=== PATIENT | male | born 1960 | race Caucasian/White ===

== ENCOUNTER 2017-09-14 17:17 | Inpatient (IN) | payer SELFPAY ==
[2017-09-14] VITALS (9 sets, daily range): BP systolic 136–176; BP diastolic 74–97; PULSE 82–93; RESP 14–18; TEMP 98–98.2; O2SAT 97–99
[~2017-09-14] VITALS: Ht 167.6 cm; Wt 74.0 kg
--- NOTE | 2017-09-14 18:56 | PD ---
HPI Chief Complaint: Injury Time Seen by Provider: 18:36 Travel History International Travel<30 days: No Contact w/Intl Traveler<30days: No Traveled to known affect area: No History of Present Illness HPI This patient complains of pain in his left upper chest. Duration 7-10 days. Symptoms are nonexertional. They're intermittent and can last around 5 or so minutes. No alleviating factors. Symptoms are not exacerbated by left arm movement. He says that about 2 weeks ago his left shoulder got jerked in the socket when the tailgate fell without direct trauma to it. And then about 4-5 days later the chest pain started so he doesn't think it's related but is not sure. He has no diagnosed cardiac disease but he is hypertensive smoker with family history. He also snorts cocaine and last use was 3 days ago. Last IV drug use was 20 years ago [facility] Past Medical History Cardiovascular Problems: Yes (HTN) Social History Alcohol Use: No Tobacco Use: Yes Substance Use: No Allergies-Medications (Allergen,Severity, Reaction): Coded Allergies: No Known Allergies (Verified Allergy, Unknown, 09/14/17) Reported Meds & Prescriptions Reported Meds & Active Scripts Active No Active Prescriptions or Reported Medications Review of Systems General / Constitutional: No: Fever Eyes: No: Visual changes HENT: No: Headaches Cardiovascular: Positive: Chest Pain or Discomfort Respiratory: No: Shortness of Breath Gastrointestinal: No: Abdominal Pain Genitourinary: No: Dysuria Musculoskeletal: No: Pain Skin: No Rash Neurologic: No: Weakness Psychiatric: No: Depression Endocrine: No: Polydipsia Hematologic/Lymphatic: No: Easy Bruising Physical Exam Narrative GENERAL: Well-nourished, well-developed patient in no apparent distress. SKIN: Focused skin assessment reveals no rash and nodules. Skin is Warm and dry. HEAD: Atraumatic. Normocephalic. EYES: Pupils equal and round. No scleral icterus. No injection or drainage. ENT: No nasal bleeding or discharge. Mucous membranes pink and moist. NECK: Trachea midline. No JVD. CARDIOVASCULAR: Regular rate and rhythm. No murmur appreciated. RESPIRATORY: No accessory muscle use. Clear to auscultation. Breath sounds equal bilaterally. GASTROINTESTINAL: Abdomen soft, non-tender, nondistended. Hepatic and splenic margins not palpable. MUSCULOSKELETAL: No obvious deformities. No clubbing. No cyanosis. No edema. NEUROLOGICAL: Awake and alert. No obvious cranial nerve deficits. Motor grossly within normal limits. Normal speech. PSYCHIATRIC: Appropriate mood and affect; insight and judgment normal. Data Data Last Documented VS Vital Signs Date Time Temp Pulse Resp B/P (MAP) Pulse Ox O2 Delivery O2 Flow Rate FiO2 09/14/17 19:16 86 99 Room Air 09/14/17 19:14 18 176/94 (121) 09/14/17 17:47 98.0 Orders Orders Electrocardiogram (09/14/17 17:49) Electrocardiogram (09/14/17 18:48) Basic Metabolic Panel (Bmp) (09/14/17 18:48) Ckmb (Isoenzyme) Profile (09/14/17 18:48) Complete Blood Count With Diff (09/14/17 18:48) Prothrombin Time / Inr (Pt) (09/14/17 18:48) Act Partial Throm Time (Ptt) (09/14/17 18:48) Troponin I (09/14/17 18:48) Chest, Single Ap (09/14/17 18:48) Ecg Monitoring (09/14/17 18:48) Iv Access Insert/Monitor (09/14/17 18:48) Aspirin (Aspirin) (09/14/17 19:00) Sodium Chloride 0.9% Flush (Ns Flush) (09/14/17 19:00) CKMB (09/14/17 19:00) CKMB% (09/14/17 19:00) Electrocardiogram (09/14/17 ) Nitroglycerin 2% Oint (Nitroglycerin 2% (09/14/17 20:30) Heparin Infusion JONH.Q1H (09/14/17 20:22) Heparin Inj (Heparin Inj) (09/14/17 20:30) Heparin Inj (Heparin Inj) (09/15/17 02:30) Heparin Inj (Heparin Inj) (09/15/17 02:30) Heparin-D5w 25,000 U/250 Ml (Heparin-D5w (09/14/17 20:30) Act Partial Throm Time (Ptt) (09/14/17 20:22) Cbc No Diff, Includes Plts (09/14/17 20:22) Cbc No Diff, Includes Plts (09/17/17 06:00) Act Partial Throm Time (Ptt) (09/15/17 03:22) Occult Blood (Hemoccult) Stool (09/14/17 20:22) Admit Order (Ed Use Only) (09/14/17 20:23) Labs Laboratory Tests Test 09/14/17 19:00 White Blood Count 7.6 TH/MM3 Red Blood Count 4.93 MIL/MM3 Hemoglobin 14.9 GM/DL Hematocrit 43.4 % Mean Corpuscular Volume 88.2 FL Mean Corpuscular Hemoglobin 30.2 PG Mean Corpuscular Hemoglobin Concent 34.2 % Red Cell Distribution Width 12.5 % Platelet Count 287 TH/MM3 Mean Platelet Volume 7.7 FL Neutrophils (%) (Auto) 63.1 % Lymphocytes (%) (Auto) 24.8 % Monocytes (%) (Auto) 8.0 % Eosinophils (%) (Auto) 2.6 % Basophils (%) (Auto) 1.5 % Neutrophils # (Auto) 4.8 TH/MM3 Lymphocytes # (Auto) 1.9 TH/MM3 Monocytes # (Auto) 0.6 TH/MM3 Eosinophils # (Auto) 0.2 TH/MM3 Basophils # (Auto) 0.1 TH/MM3 CBC Comment DIFF FINAL Differential Comment Prothrombin Time 10.7 SEC Prothromb Time International Ratio 1.0 RATIO Activated Partial Thromboplast Time 28.4 SEC Blood Urea Nitrogen 15 MG/DL Creatinine 0.96 MG/DL Random Glucose 100 MG/DL Calcium Level 8.2 MG/DL Sodium Level 139 MEQ/L Potassium Level 3.8 MEQ/L Chloride Level 105 MEQ/L Carbon Dioxide Level 27.8 MEQ/L Anion Gap 6 MEQ/L Estimat Glomerular Filtration Rate 81 ML/MIN Total Creatine Kinase 136 U/L Creatine Kinase MB 7.0 NG/ML Troponin I 1.91 NG/ML [facility] [place] Medical Decision Making Medical Screen Exam Complete: Yes Emergency Medical Condition: Yes Medical Record Reviewed: Yes Differential Diagnosis Differential diagnosis includes NC, angina, pericarditis, pleurisy, GERD, anxiety. Narrative Course I have reviewed the patient's electronic medical record. IV placed I reviewed the EKG which shows sinus rhythm and no acute ST elevation or ectopy I reviewed the chest x-ray which is normal Extended cardiac monitoring shows sinus rhythm without ectopy CBC is normal Metabolic profile is normal CK is normal Troponin is elevated at 1.9 Coagulation studies are normal I gave him an aspirin I reviewed a second EKG which shows no ST elevation Patient has a non-ST segment elevation NC. I reviewed with miter grinder operator Dr. Padgett. He'll be admitted to cardiac intensive care at the [facility]. She's had aspirin already. Holding off on beta blockade due to his recent cocaine use. Placed him on Nitropaste and heparin drip. Call placed to hospitalist to discuss. At this time he is currently pain-free Critical Care Narrative Aggregate critical care time was 40 minutes. Time to perform other separately billable procedures was not included in the critical care time. My time did not include minutes spent treating any other patients simultaneously or on activities that did not directly contribute to the patient's treatment. The services I provided to this patient were to treat and/or prevent clinically significant deterioration that could result in: Myocardial damage, cardiopulmonary arrest, cardiac arrhythmia I provided critical care services requiring my management, as noted below: Chart data review, documentation time, medication orders and management, vital sign assessments/reviewing monitor data, ordering and reviewing lab tests, ordering and interpreting/reviewing x-rays and diagnostic studies, care of the patient and discussion of the patient with the admitting physicians. Diagnosis Primary Impression: Non-ST elevation NC (NSTEMI) Admitting Information Admitting Physician Requests: Admit Scripts No Active Prescriptions or Reported Meds Darion Padilla MD Sep 14, 2017 18:56
[2017-09-14] MEDS ORDERED: SODIUM CHLORIDE 0.9% FLUSH 10 ML FLUSH IVF PRN (19:00)
[2017-09-14] MEDS ORDERED: ASPIRIN 325 MG TAB PO ONE (19:00)
--- NOTE | 2017-09-14 19:18 | RADRPT ---
EXAM DATE/TIME: 09/14/2017 18:57 [facility] COMPARISON: No previous studies available for comparison. INDICATIONS : Chest pain. MEDICAL HISTORY : Hypertension. SURGICAL HISTORY : None. ENCOUNTER: Initial ACUITY: 1 day PAIN SCORE: 4/10 LOCATION: Left upper chest FINDINGS: A single view of the chest demonstrates the lungs to be symmetrically aerated without evidence of mas s, infiltrate or effusion. The cardiomediastinal contours are unremarkable. Osseous structures are intact. CONCLUSION: No acute disease. Anjel Thomas MD on September 14, 2017 at 19:16 Board Certified Radiologist. This report was verified electronically.
[2017-09-14 19:19] LABS: AUTOMATED NEUTROPHIL # 4.8 TH/MM3 (1.8-7.7); BASOPHIL # 0.1 TH/MM3 (0-0.2); BASOPHIL % 1.5 % (0.0-2.0); EOSINOPHIL # 0.2 TH/MM3 (0-0.4); EOSINOPHIL % 2.6 % (0.0-4.0); HEMATOCRIT 43.4 % (39.0-51.0); HEMO FLAGS DIFF FINAL; LYMPH % 24.8 % (9.0-44.0); LYMPHOCYTE # 1.9 TH/MM3 (1.0-4.8); MEAN CELL VOLUME 88.2 FL (80.0-100.0); MEAN CORPUSCULAR HEMOGLOBIN 30.2 PG (27.0-34.0); MEAN CORPUSCULAR HGB CONC 34.2 % (32.0-36.0); NEUT % 63.1 % (16.0-70.0); PLATELET COUNT 287 TH/MM3 (150-450); RED BLOOD COUNT 4.93 MIL/MM3 (4.50-5.90); RED CELL DISTRIBUTION WIDTH 12.5 % (11.6-17.2); WHITE BLOOD COUNT 7.6 TH/MM3 (4.0-11.0)
[2017-09-14 19:30] LABS: CHLORIDE 105 MEQ/L (98-107); POTASSIUM 3.8 MEQ/L (3.5-5.1); SODIUM (NA) 139 MEQ/L (136-145)
[2017-09-14 19:34] LABS: ANION GAP 6 MEQ/L (5-15); BICARBONATE 27.8 MEQ/L (21.0-32.0); BLOOD UREA NITROGEN 15 MG/DL (7-18)
[2017-09-14 19:37] LABS: GLOMERULAR FILTRATION RATE 81 ML/MIN (>89)
[2017-09-14 19:40] LABS: CREATINE KINASE 136 U/L (39-308)
[2017-09-14 19:43] LABS: APTT (PATIENT) 28.4 SEC (24.3-30.1); PROTHROMBIN TIME - PATIENT 10.7 SEC (9.8-11.6)
[2017-09-14] MEDS ORDERED: HEPARIN-D5W 25,000 U/250 ML 250 ML IV ONE (20:30)
[2017-09-14] MEDS ORDERED: SODIUM CHLORIDE 0.9% FLUSH 10 ML FLUSH IV FLUSH PRN (20:30)
[2017-09-14] MEDS ORDERED: HEPARIN SODIUM - IV 10,000 UNITS/10 ML VIAL IV ONE (20:30)
[2017-09-14] MEDS ORDERED: NITROGLYCERIN 2% OINT 1 GM PACKET TOPICAL ONE (20:30)
[2017-09-14] MEDS ORDERED: NALOXONE HCL 0.4 MG/ML AMP IV PUSH PRN (20:30)
[2017-09-14 20:52] LABS: HEMATOCRIT 45.2 % (39.0-51.0); MEAN CORPUSCULAR HEMOGLOBIN 30.1 PG (27.0-34.0); MEAN CORPUSCULAR HGB CONC 33.8 % (32.0-36.0); PLATELET COUNT 320 TH/MM3 (150-450); RED BLOOD COUNT 5.07 MIL/MM3 (4.50-5.90); REVIEW FLAG FINAL; WHITE BLOOD COUNT 8.2 TH/MM3 (4.0-11.0)
[2017-09-14] MEDS: SODIUM CHLORIDE 0.9% FLUSH 10 ML FLUSH IV FLUSH SCH (20:57)
[2017-09-14 21:07] LABS: APTT (PATIENT) 27.8 SEC (24.3-30.1)
[2017-09-15] VITALS (22 sets, daily range): BP systolic 102–146; BP diastolic 60–87; PULSE 66–88; RESP 14–18; TEMP 97.5–98.3; O2SAT 95–99
[2017-09-15] MEDS ORDERED: NITROGLYCERIN 0.4 MG SL 25 TABS/BTL SL PRN (02:15)
[2017-09-15] MEDS ORDERED: HEPARIN SODIUM - IV 10,000 UNITS/10 ML VIAL IV PRN ×2 (02:30)
[2017-09-15 03:24] LABS: APTT (PATIENT) 35.8 SEC (24.3-30.1)
[2017-09-15 06:54] LABS: AUTOMATED NEUTROPHIL # 5.9 TH/MM3 (1.8-7.7); BASOPHIL # 0.1 TH/MM3 (0-0.2); BASOPHIL % 0.6 % (0.0-2.0); EOSINOPHIL # 0.2 TH/MM3 (0-0.4); EOSINOPHIL % 2.4 % (0.0-4.0); HEMATOCRIT 43.6 % (39.0-51.0); HEMO FLAGS DIFF FINAL; LYMPH % 21.5 % (9.0-44.0); LYMPHOCYTE # 1.9 TH/MM3 (1.0-4.8); MEAN CELL VOLUME 87.8 FL (80.0-100.0); MEAN CORPUSCULAR HEMOGLOBIN 29.6 PG (27.0-34.0); MEAN CORPUSCULAR HGB CONC 33.8 % (32.0-36.0); MONO % 7.7 % (0.0-8.0); NEUT % 67.8 % (16.0-70.0); PLATELET COUNT 275 TH/MM3 (150-450); RED BLOOD COUNT 4.97 MIL/MM3 (4.50-5.90); RED CELL DISTRIBUTION WIDTH 12.5 % (11.6-17.2); WHITE BLOOD COUNT 8.8 TH/MM3 (4.0-11.0)
[2017-09-15 07:08] LABS: POTASSIUM 3.6 MEQ/L (3.5-5.1)
[2017-09-15 07:11] LABS: BICARBONATE 27.1 MEQ/L (21.0-32.0)
[2017-09-15] MEDS: SODIUM CHLORIDE 0.9% FLUSH 10 ML FLUSH IV FLUSH SCH ×2 (09:00→20:38)
[2017-09-15] MEDS ORDERED: ASPIRIN EC 325 MG TABEC PO SCH (09:00)
--- NOTE | 2017-09-15 09:47 | HHI.HP ---
HPI Service [facility] Primary Care Physician No Primary Care Physician Admission Diagnosis acute non ST elevation AK Diagnoses: Chief Complaint: Chest pain Travel History International Travel<30 Days: No Contact w/Intl Traveler <30 Da: No Traveled to Known Affected Are: No History of Present Illness 56 Y/O male with a medical history significant for hypertension presented to the emergency room with complaints of chest pain. Patient reports the pain has been ongoing for the past two weeks. It has been intermittent. It is associated with diaphoresis. Patient initially thought he injured his left arm at work. However the pain persisted and became severe today which prompted the emergency room visit. Workup in the emergency room revealed NSTEMI. Patient is currently chest pain free. Review of Systems Constitutional: COMPLAINS OF: Fatigue Cardiovascular: COMPLAINS OF: Chest pain Gastrointestinal: DENIES: Nausea, Vomiting Except as stated in HPI: all other systems reviewed are Neg Past Family Social History Past Medical History Hypertension but does not follow-up with jim Schafer medications. Past Surgical History Jaw reconstruction surgery Reported Medications Reported Meds & Active Scripts Active No Active Prescriptions or Reported Medications Allergies: Coded Allergies: No Known Allergies (Verified Allergy, Unknown, 09/14/17) Family History Sister of heart disease in her 50s. Social History Patient smoke 1 PPD No alcohol for the past 2 months No drugs for the past 20 years but used cocaine 3 days ago per his report. Physical Exam Vital Signs Vital Signs Date Time Temp Pulse Resp B/P (MAP) Pulse Ox O2 Delivery O2 Flow Rate FiO2 09/15/17 09:06 97.9 82 18 121/77 (92) 97 09/15/17 08:21 09/15/17 07:12 97.5 76 16 102/69 (80) 96 Room Air 09/15/17 06:59 Room Air 09/15/17 06:35 73 16 105/65 (78) 99 Room Air 09/15/17 03:45 69 16 96 Room Air 09/15/17 03:45 98.3 69 16 118/67 (84) 96 Room Air 09/15/17 02:15 74 16 128/70 (89) 95 Room Air 09/15/17 00:35 72 14 117/60 (79) 97 Room Air 09/15/17 00:05 76 14 123/68 (86) 97 Room Air 09/14/17 23:35 84 16 136/79 (98) 98 Room Air 09/14/17 23:35 84 16 98 Room Air 09/14/17 22:05 98.2 88 16 141/82 (101) 97 Room Air 09/14/17 21:35 92 14 154/94 (114) 97 Room Air 09/14/17 21:05 90 16 156/90 (112) 97 Room Air 09/14/17 20:35 90 16 162/97 (118) 98 Room Air 09/14/17 20:05 82 14 154/92 (112) 99 Room Air 09/14/17 20:05 82 16 99 Room Air 09/14/17 19:35 84 14 149/74 (99) 98 Room Air 09/14/17 19:16 86 99 Room Air 09/14/17 19:14 84 18 176/94 (121) 99 Room Air 09/14/17 17:47 98.0 93 16 159/80 (106) 97 Physical Exam GENERAL: This is a well-nourished, well-developed patient, in no apparent distress. SKIN: No rashes, ecchymoses or lesions. Cool and dry. HEAD: Atraumatic. Normocephalic. No temporal or scalp tenderness. EYES: Pupils equal round and reactive. Extraocular motions intact. No scleral icterus. No injection or drainage. ENT: Nose without bleeding, purulent drainage or septal hematoma. Throat without erythema, tonsillar hypertrophy or exudate. Uvula midline. Airway patent. NECK: Trachea midline. No JVD or lymphadenopathy. Supple, nontender, no meningeal signs. CARDIOVASCULAR: Regular rate and rhythm without murmurs, gallops, or rubs. RESPIRATORY: Clear to auscultation. Breath sounds equal bilaterally. No wheezes , rales, or rhonchi. GASTROINTESTINAL: Abdomen soft, non-tender, nondistended. No hepato-splenomegaly , or palpable masses. No guarding. MUSCULOSKELETAL: Extremities without clubbing, cyanosis, or edema. No joint tenderness, effusion, or edema noted. No calf tenderness. Negative Homans sign bilaterally. NEUROLOGICAL: Awake and alert. Cranial nerves II through XII intact. Motor and sensory grossly within normal limits. Five out of 5 muscle strength in all muscle groups. Normal speech. Laboratory Laboratory Tests Test 09/14/17 19:00 09/14/17 20:40 09/15/17 01:00 09/15/17 03:00 White Blood Count 7.6 8.2 Red Blood Count 4.93 5.07 Hemoglobin 14.9 15.3 Hematocrit 43.4 45.2 Mean Corpuscular Volume 88.2 89.0 Mean Corpuscular Hemoglobin 30.2 30.1 Mean Corpuscular Hemoglobin Concent 34.2 33.8 Red Cell Distribution Width 12.5 13.0 Platelet Count 287 320 Mean Platelet Volume 7.7 7.7 Neutrophils (%) (Auto) 63.1 Lymphocytes (%) (Auto) 24.8 Monocytes (%) (Auto) 8.0 Eosinophils (%) (Auto) 2.6 Basophils (%) (Auto) 1.5 Neutrophils # (Auto) 4.8 Lymphocytes # (Auto) 1.9 Monocytes # (Auto) 0.6 Eosinophils # (Auto) 0.2 Basophils # (Auto) 0.1 CBC Comment DIFF FINAL Differential Comment Prothrombin Time 10.7 Prothromb Time International Ratio 1.0 Activated Partial Thromboplast Time 28.4 27.8 35.8 Blood Urea Nitrogen 15 Creatinine 0.96 Random Glucose 100 Calcium Level 8.2 Sodium Level 139 Potassium Level 3.8 Chloride Level 105 Carbon Dioxide Level 27.8 Anion Gap 6 Estimat Glomerular Filtration Rate 81 Total Creatine Kinase 136 205 Creatine Kinase MB 7.0 Troponin I 1.91 4.92 Test 09/15/17 06:35 White Blood Count 8.8 Red Blood Count 4.97 Hemoglobin 14.7 Hematocrit 43.6 Mean Corpuscular Volume 87.8 Mean Corpuscular Hemoglobin 29.6 Mean Corpuscular Hemoglobin Concent 33.8 Red Cell Distribution Width 12.5 Platelet Count 275 Mean Platelet Volume 7.7 Neutrophils (%) (Auto) 67.8 Lymphocytes (%) (Auto) 21.5 Monocytes (%) (Auto) 7.7 Eosinophils (%) (Auto) 2.4 Basophils (%) (Auto) 0.6 Neutrophils # (Auto) 5.9 Lymphocytes # (Auto) 1.9 Monocytes # (Auto) 0.7 Eosinophils # (Auto) 0.2 Basophils # (Auto) 0.1 CBC Comment DIFF FINAL Differential Comment Blood Urea Nitrogen 13 Creatinine 0.74 Random Glucose 107 Calcium Level 8.2 Sodium Level 138 Potassium Level 3.6 Chloride Level 106 Carbon Dioxide Level 27.1 Anion Gap 5 Estimat Glomerular Filtration Rate 110 Total Creatine Kinase 217 Troponin I 8.38 Result Diagram: 09/15/17 0635 09/15/17 0635 Imaging Last Impressions Chest X-Ray 09/14/17 7928 Signed Impressions: Service Date/Time: Thursday, September 14, 2017 18:57 - CONCLUSION: No acute disease. MD Lisa Marshall VTE Risk Assessment Lisa VTE Risk Assessment: Mod/High Risk (score >= 2) Caprini Risk Assessment Model Point Value = 1 Point Value = 2 Point Value = 3 Point Value = 5 Age 41-60 Minor surgery BMI > 25 kg/m2 Swollen legs Varicose veins or History of unexplained or recurrent spontaneous Oral contraceptives or hormone replacement Sepsis (< 1 month) Serious lung disease, including pneumonia (< 1 month) Abnormal pulmonary function Acute myocardial infarction Congestive heart failure (< 1 month) History of inflammatory bowel disease Medical patient at bed rest Age 61-74 Arthroscopic surgery Major open surgery (> 45 min) Laparoscopic surgery (> 45 min) Malignancy Confined to bed (> 72 hours) Immobilizing plaster cast Central venous access Age >= 75 History of VTE Family history of VTE Factor V Leiden Prothrombin [id number] Lupus anticoagulant Anticardiolipin antibodies Elevated serum homocysteine Heparin-induced thrombocytopenia Other congenital or acquired thrombophilia Stroke (< 1 month) Elective arthroplasty Hip, pelvis, or leg fracture Acute spinal cord injury (< 1 month) Prophylaxis Regimen Total Risk Factor Score Risk Level Prophylaxis Regimen 0-1 Low Early ambulation 2 Moderate Order ONE of the following: *Sequential Compression Device (SCD) *Heparin 5000 units SQ BID 3-4 Higher Order ONE of the following medications: *Heparin 5000 units SQ TID *Enoxaparin/Lovenox 40 mg SQ daily (WT < 150 kg, CrCl > 30 mL/min) *Enoxaparin/Lovenox 30 mg SQ daily (WT < 150 kg, CrCl > 10-29 mL/min) *Enoxaparin/Lovenox 30 mg SQ BID (WT < 150 kg, CrCl > 30 mL/min) AND/OR *Sequential Compression Device (SCD) 5 or more Highest Order ONE of the following medications: *Heparin 5000 units SQ TID (Preferred with Epidurals) *Enoxaparin/Lovenox 40 mg SQ daily (WT < 150 kg, CrCl > 30 mL/min) *Enoxaparin/Lovenox 30 mg SQ daily (WT < 150 kg, CrCl > 10-29 mL/min) *Enoxaparin/Lovenox 30 mg SQ BID (WT < 150 kg, CrCl > 30 mL/min) AND *Sequential Compression Device (SCD) Assessment and Plan Problem List: (1) Non-ST elevation AK (NSTEMI) ICD Code: I21.4 - Non-ST elevation (NSTEMI) myocardial infarction Status: Acute Plan: Patient received Aspirin and started on Heparin drip per protocol. Nitro paste Cardiology consulted Morphine as needed for pain (2) Cocaine abuse ICD Code: F14.10 - Cocaine abuse, uncomplicated Plan: Patient admitted to using once 3 days ago, Prior to that he reports no illicit drug use in the past 20 years. Patient was counseled. (3) Tobacco abuse ICD Code: Z72.0 - Tobacco use Plan: Patient counseled to quit. (4) Hypertension ICD Code: I10 - Essential (primary) hypertension Status: Chronic Plan: BP currently stable. Monitor Physician Certification 2 Midnight Certification Type: Admission for Inpatient Services Order for Inpatient Services The services are ordered in accordance with Medicare regulations or non- Medicare payer requirements, as applicable. In the case of services not specified as inpatient-only, they are appropriately provided as inpatient services in accordance with the 2-midnight benchmark. Estimated LOS (days): 3 days is the estimated time the patient will need to remain in the hospital, assuming treatment plan goals are met and no additional complications. Post-Hospital Plan: Home Problem Qualifiers (1) Hypertension: Qualified Codes: I10 - Essential (primary) hypertension Chaz Krishnan MD Sep 15, 2017 09:46
[2017-09-15] MEDS ORDERED: HEPARIN-NS/PF INJ 1,000 ML ONE (10:08)
[2017-09-15] MEDS ORDERED: MIDAZOLAM HCL 2 MG/2 ML VIAL ONE (10:35)
[2017-09-15] MEDS ORDERED: HEPARIN SODIUM - IV 10,000 UNITS/10 ML VIAL ONE (11:00)
[2017-09-15] MEDS ORDERED: PRASUGREL 10 MG TAB ONE (11:02)
[2017-09-15] MEDS ORDERED: TIROFIBAN INFUSION INJ 250 ML IV ONE (11:02)
[2017-09-15] MEDS ORDERED: SODIUM NITROPRUSSIDE 50 MG/2 ML VIAL ONE (11:15)
[2017-09-15] MEDS ORDERED: MISC INFORMATION XX ONE (11:45)
[2017-09-15] MEDS ORDERED: PRASUGREL 10 MG TAB PO ONE (11:45)
[2017-09-15] MEDS ORDERED: SODIUM CHLORIDE 0.9% FLUSH 10 ML FLUSH IV FLUSH PRN (11:45)
--- NOTE | 2017-09-15 11:54 | CATHPROC ---
[facility] HIS Report Study Information Study Number Admission Scheduled Start Study Start [id number] Sep 14 2017 8:25PM 09/15/2017 Sep 15 2017 10:11AM [facility] Cardiac Catheterization Admit Source Facility Department Other [facility] - Stock Blender Physician and Clinical Staff Initial Hubert Mandel Soil Chemist Shannan Rodriguez,CORINRN Soil Chemist Benny Mcdaniel,JUAN Recorder Azucena Julio,EXPERIENCE PLANNING STRATEGIST Scrub Savage, Gisselle,RESIDENT CARE DIRECTOR TECH2 Procedures Performed Procedure Location (Site) Vessel Name Coronary Angiograms LCA Left Coronary Coronary Angiograms RCA Right Coronary L Heart Cath LV Gram-hand inj. LV LV Ventricle PTCA CIRC Mid CIRC Stent OM1 Prox CIRC Wire insertion Fem Art (right) Femoral Art Equipment Time Tire Regrooving Machine Operator Description Size Mfg Part Number Used/Scraped [id number] 10:57 [employer] WIRE, ASAHI PROWATER 180CM 180CM Used *[id number] 10:58 [employer]ILL[employer] WIRE, ASAHI PROWATER 180CM 180CM Used *[id number] TRANSDUCER, TRUWAVE [id number] 10:17 DREW SHERIDAN * Used W/STOCKCOCK *[id number] [id number] *[id number] [id number] *[id number] *[id number] WIRE, HYDROSTEER 150CM [id number] 10:51 DAIG/ST. JEANNIE MEDICAL 150CM Used ANGLED GLIDE *[id number] 10:17 [employer] INDUSTRIES PACK, CCL CUSTOM * Used *[id number] 10:17 [employer]ics PACER PEN, SKIN DUAL W/ RULER * Used *[id number] 11:07 MEDTRONIC BALLOON, 2.5 X 12MM EUPHORA 12MM Used *[id number] 11:07 MEDTRONIC STENT, 3.0 9 INTEGRITY 3.0 9 Used *[id number] 11:09 EXPO MEDICAL 30 GABBY INDEFLATOR Used *[id number] 10:58 EXPO MEDICAL SHEATH, FR6.5 PRELUDE 11CM FR 6.5 038ACT Used *[id number] 10:17 EXPO MEDICAL WIRE, 3MMJ .035 180CM 180CM Used *[id number] 10:17 [facility] MANIFOLD, 4 PORT * Used *[id number] 10:17 NYCOMED OMNIPAQUE, 350 MG, 150ML 150ML [id number] Used [id number] 10:17 GUILLEN MEDICAL BLANKET,WARM AIR CCL * Used *[id number] 10:17 TERUMO MEDICAL SHEATH, FR4 TERUMO (10CM) FR 4 Used *[id number] Equipment Model, Serial, Lot Number and Expiration Data Description Model Number Serial Number Lot Number Expiration Date STENT, 3.0 9 INTEGRITY [id number] 03-03-2019 History: Allergies Allergy Reaction No Known Allergies History: Risk Factors Family History of Hypertension Dyslipidemia Previous CO Previous Heart Failure Premature CAD Yes No No No No Prior Valve Prior PCI Prior CABG Surgery No No No Cerebrovascular Peripheral Artery Chronic Lung On Dialysis Diabetes Disease Disease Disease No No No No No History: Stress Tests Stress or Imaging Studies Performed No History: Other Current Smoker Method Packs a Day Years Used Pack Years Yes Cigarettes 1 30 30 Labs Hgb (g/dl) Hct (%) WBC (l/cumm) Platelets (thousands) 11.60-17.00 35.00-51.00 4.00-11.00 150.00-450.00 14.7 43.6 8.8 275 Glucose (mg/dl) BUN (mg/dl) Creatinine (mg/dl) BUN:Creatinine (1:x) 74.00-106.00 7.00-18.00 0.50-1.30 10.00-20.00 107 13 0.7 18.6 Na (meq/l) K (meq/l) 136.00-145.00 3.50-5.10 138 3.6 INR (PTT:PT) 0.90-1.10 1 Troponin I (ng/ml) CPK (u/l) CPK-MB (ng/ML) 0.02-0.05 26.00-308.00 0.50-3.60 8.32 217 Not Drawn Medication Medication Total Dose (Bolus/Oral) Medication Total Dosage/Unit 1% XYLOCAINE 20 mL AGGRASTAT BOLUS 37.5 mL EFFIENT 60 mg HEPARIN 4000 units Medications (Bolus/Oral) Medication Time Given Dosage/Unit Administered By Reason 09/15/2017 10:47:40 1% XYLOCAINE 20 mL Hubert Grimaldo AM Patient arrived on 20 mL 1% XYLOCAINE given by Hubert Grimaldo via Subcutaneous. 09/15/2017 11:01:36 HEPARIN 4000 units Benny Mcdaniel AM 4000 units HEPARIN given in lab by Benny Mcdaniel RN via Peripheral IV. 09/15/2017 11:18:14 EFFIENT 60 mg Benny Mcdaniel AM 60 mg EFFIENT given in lab by Benny Mcdaniel RN via Oral. 09/15/2017 11:19:48 AGGRASTAT BOLUS 37.5 mL Benny Mcdaniel AM 37.5 mL AGGRASTAT BOLUS given in lab by Benny Mcdaniel RN via Peripheral IV. Medication (Drip) Medication Time Given Dosage/Unit Concentration/Unit Diluent (ml) Solution 09/15/2017 11:23:40 AGGRASTAT DRIP 0.153 mcg/kg/min 12.5 mg 250 NaCl .9 AM 0.153 mcg/kg/min AGGRASTAT DRIP given in lab by Benny Mcdaniel RN via Peripheral IV. Pump/Drip Flow = 13.5 ml/hr using NaCl .9 with a concentration of 12.5 mg in 250 ml. 09/15/2017 10:22:43 IV Solutions 50 mL (IV) 500 NaCl .9 AM Patient arrived on IV Solutions via Peripheral IV. Pump/Drip Flow using NaCl .9. Initial Case Assessment Cardiovascular HR NIBP Chest Pain 77 152/92 0 Edema Present Skin color Skin None Normal Warm Dry Circulatory - Right Pulses Dorsalis Pedis Femoral 2 3 Scale (0,1,2,3,4,d) Circulatory - Left Pulses Dorsalis Pedis Femoral 2 3 Scale (0,1,2,3,4,d) Neurological State Oriented to time-place- Alert Moves all extremities person Respiration - General Respiration Rate SpO2 (%) (B/min) 20 98 Chronological Log Time Study Chronological Log 10:17:24 Patient arrived via Bed. 10:17:25 Patient Name, D.O.B, / Armband Verified By R.N. 10:17:28 Consent signed by the physician and the patient and verified by the Stock Blender staff. 10:21:08 Verbal Stimulation=2 Physical Stimulation=2 Airway=2 Respiration=2 TOTAL=8. (0=absent, 1=li mited, 2=present) 10:21:32 Patient has been NPO for More than 6Hrs. 10:21:34 Skin Breakdown- None 10:21:46 A # 20 IV was noted in the Forearm (left). Grade = 0 10:22:43 Patient arrived on IV Solutions via Peripheral IV. Pump/Drip Flow using NaCl .9. 10:23:12 History and physical on the chart or being dictated. Assessment: Initial Case, HR=77 BPM, RKAC=521/92 mmhg, Chest Pain=0, Edema=None, Color=Normal, Skin = Warm, Dry Right Pulses: Shon Ped=2, Femoral=3 10:23:20 Left Pulses: Shon Ped=2, Femoral=3 Neurological: State=Alert, Ox3, ARRIAZA Respiration: Resp=20 B/min, SpO2=98 % Vitals capture started with the following parameters, Patient=Adult, Interval=5 min, Initial Pr jtdgpo=487 mmHg, 10:30:12 Deflation Rate=5 mmHg 10:30:26 Vitals capture stopped. Vitals capture started with the following parameters, Patient=Adult, Interval=5 min, Initial Pr ucjwgt=991 mmHg, 10:33:48 Deflation Rate=5 mmHg 10:33:54 Reference ECG taken 10:34:25 HR=72 bpm, GPVZ=315/92 mmhg, SpO2=98.0 %, Resp=12 B/min, Pain=0, Yesy=10, Novak=2 10:35:18 Pressure channel 1 zeroed. 10:36:19 Bilateral groins prepped with 2% chlorhexidine, and draped after a 3 minute waiting time. 10:36:25 HR=75 bpm, PRUI=606/87 mmhg, SpO2=97.0 %, Resp=14 B/min, Pain=0, Yesy=10, Novak=2 10:38:24 HR=80 bpm, TLGF=542/92 mmhg, SpO2=96.0 %, Resp=11 B/min, Pain=0, Yesy=10, Novak=2 10:40:23 HR=75 bpm, COJF=434/91 mmhg, SpO2=97.0 %, Resp=8 B/min, Pain=0, Yesy=10, Novak=2 10:42:26 HR=73 bpm, RZRP=849/86 mmhg, SpO2=97.0 %, Resp=9 B/min, Pain=0, Yesy=10, Novak=2 10:44:21 HR=74 bpm, CFLB=443/90 mmhg, SpO2=96.0 %, Resp=9 B/min, Pain=0, Yesy=10, Novak=2 10:45:45 MD arrived. 10:46:26 HR=72 bpm, SSMP=920/90 mmhg, SpO2=97.0 %, Resp=10 B/min, Pain=0, Yesy=10, Novak=2 Time Out. Correct patient, correct procedure, correct physician, power injector not loaded with contrast with surgical 10:47:15 team present. Time Out Concurred by MD and individual staff in procedure. 10:47:34 Case Start 10:47:40 Patient arrived on 20 mL 1% XYLOCAINE given by Hubert Grimaldo via Subcutaneous. 10:47:47 Access site was Right Femoral Artery. 10:48:26 HR=69 bpm, PDNJ=934/88 mmhg, SpO2=97.0 %, Resp=11 B/min, Pain=0, Yesy=10, Novak=2 10:49:47 A SHEATH, FR4 TERUMO (10CM) FR 4 was advanced into the Fem Art (right) using the ~TECHNIQUE ~ technique. A JR 4.0 INFINITI CATHETER FR 4 was advanced over a wire. OMNIPAQUE, 350 MG, 150ML 150ML was us ed for 10:49:58 injections. 10:50:48 A WIRE, 3MMJ .035 180CM 180CM was inserted via Fem Art (right). 10:50:54 HR=77 bpm, CISA=133/96 mmhg, SpO2=97.0 %, Resp=15 B/min, Pain=0, Yesy=10, Novak=2 10:51:16 Wire removed 10:52:19 A WIRE, HYDROSTEER 150CM ANGLED GLIDE 150CM was inserted via Fem Art (right). 10:52:28 HR=77 bpm, BIND=155/89 mmhg, SpO2=96.0 %, Resp=15 B/min, Pain=0, Yesy=10, Novak=2 10:52:57 Wire removed Recorded Pressure: LV, HR=79, Condition=Condition 1 10:53:37 (Left Ventricle) LV 145/-5/136 Recorded Pressure: LV, HR=79, Condition=Condition 1 10:53:46 (Left Ventricle) LV 144/1/140 10:54:00 The LV was manually injected with 7 cc's and visualized. OMNIPAQUE, 350 MG, 150ML 150ML use d. Recorded Pressure: LV, Ao, HR=77, Condition=Condition 1 10:54:07 (Left Ventricle) LV 147/3/143, (Aorta) Ao 148/74/105 10:54:29 HR=76 bpm, QKNO=202/90 mmhg, SpO2=97.0 %, Resp=19 B/min, Pain=0, Yesy=10, Novak=2 10:55:02 The RCA was injected and visualized at various angles. OMNIPAQUE, 350 MG, 150ML 150ML used . After removing the current catheter a JL 4.0 INFINITI CATHETER FR 4 was advanced over a WIRE, 3 MMJ .035 180CM 10:55:14 180CM. 10:56:28 HR=75 bpm, RJWM=363/90 mmhg, SpO2=97.0 %, Resp=14 B/min, Pain=0, Yesy=10, Novak=2 10:57:26 The LCA was injected and visualized at various angles. OMNIPAQUE, 350 MG, 150ML 150ML used . 10:58:31 HR=74 bpm, BMBF=977/91 mmhg, SpO2=97.0 %, Resp=15 B/min, Pain=0, Yesy=10, Novak=2 11:00:05 Catheter was removed A SHEATH, FR6.5 PRELUDE 11CM FR 6.5 was exchanged in the Fem Art (right). This was necessary in order to 11:00:19 accomodate a larger catheter. 11:00:25 HR=76 bpm, SHIO=557/89 mmhg, SpO2=98.0 %, Resp=14 B/min, Pain=0, Yesy=10, Novak=2 A XB 4.0 GUIDE CATHETER FR 6 was advanced over a wire. OMNIPAQUE, 350 MG, 150ML 150ML was used for 11:00:30 injections. 11:01:36 4000 units HEPARIN given in lab by Benny Mcdaniel, JUAN via Peripheral IV. 11:02:26 A WIRE, ASAHI PROWATER 180CM 180CM was inserted via Fem Art (right). 11:02:28 HR=73 bpm, GALT=184/81 mmhg, SpO2=97.0 %, Resp=11 B/min, Pain=0, Yesy=10, Novak=2 11:03:21 Interventional wire has crossed the lesion 11:03:30 A WIRE, ASAHI PROWATER 180CM 180CM was inserted via Fem Art (right). 11:03:40 Interventional wire has crossed the lesion 11:04:27 HR=77 bpm, RTLV=324/89 mmhg, SpO2=98.0 %, Resp=12 B/min, Pain=0, Yesy=10, Novak=2 11:04:30 A BALLOON, 2.5 X 12MM EUPHORA 12MM was inserted over WIRE, ASAHI PROWATER 180CM 180CM via t he CIRC Mid. 11:06:30 HR=77 bpm, DANF=753/83 mmhg, SpO2=98.0 %, Resp=15 B/min, Pain=0, Yesy=10, Novak=2 A BALLOON, 2.5 X 12MM EUPHORA 12MM over a WIRE, ASAHI PROWATER 180CM 180CM in the CIRC Mid was inflated 11:08:20 using a 30 GABBY INDEFLATOR at 8 gabby for 10 sec. 11:08:29 HR=78 bpm, QOEQ=224/99 mmhg, SpO2=97.0 %, Resp=12 B/min, Pain=0, Yesy=10, Novak=2 A BALLOON, 2.5 X 12MM EUPHORA 12MM over a WIRE, ASAHI PROWATER 180CM 180CM in the CIRC Mid was inflated 11:08:50 using a 30 GABBY INDEFLATOR at 10 gabby for 10 sec. 11:09:51 Balloon Removed. 11:10:30 HR=76 bpm, OGBW=384/103 mmhg, SpO2=97.0 %, Resp=17 B/min, Pain=0, Yesy=10, Novak=2 An STENT, 3.0 9 INTEGRITY 3.0 9 Bare Metal Stent was inserted through a XB 4.0 GUIDE CATHETER F R 6 over a 11:11:58 WIRE, ASAHI PROWATER 180CM 180CM. A STENT, 3.0 9 INTEGRITY 3.0 9 was deployed using a 30 GABBY INDEFLATOR at 10 atmospheres for 10 seconds in the 11:12:11 OM1 Prox. 11:12:30 HR=75 bpm, BVUV=230/100 mmhg, SpO2=98.0 %, Resp=12 B/min, Pain=0, Yesy=10, Novak=2 11:13:38 Delivery device removed 11:14:31 HR=80 bpm, FQKW=978/108 mmhg, SpO2=98.0 %, Resp=6 B/min, Pain=0, Yesy=10, Novak=2 11:14:40 Activated Clotting Time Drawn 11:14:48 Wire removed 11:16:34 HR=78 bpm, MWFC=356/104 mmhg, SpO2=98.0 %, Resp=7 B/min, Pain=0, Yesy=10, Novak=2 11:16:57 Wire removed 11:17:37 Catheter was removed 11:18:14 60 mg EFFIENT given in lab by Benny Mcdaniel, JUAN via Oral. 11:18:35 HR=81 bpm, ETJJ=063/105 mmhg, SpO2=97.0 %, Resp=18 B/min, Pain=0, Yesy=10, Novak=2 11:19:48 37.5 mL AGGRASTAT BOLUS given in lab by Benny Mcdaniel, JUAN via Peripheral IV. 11:20:13 ACT (Normal Range 90-180) = 239 11:20:30 Case End 11:20:38 HR=92 bpm, KSLJ=227/86 mmhg, SpO2=99.0 %, Resp=16 B/min, Pain=0, Yesy=10, Novak=2 11:22:26 HR=77 bpm, BHKF=169/102 mmhg, SpO2=96.0 %, Resp=12 B/min, Pain=0, Yesy=10, Novak=2 0.153 mcg/kg/min AGGRASTAT DRIP given in lab by Benny Mcdanile, JUAN via Peripheral IV. Pump/Dri p Flow = 13.5 ml/hr 11:23:40 using NaCl .9 with a concentration of 12.5 mg in 250 ml. 11:24:29 HR=72 bpm, IFRZ=462/95 mmhg, SpO2=98.0 %, Resp=13 B/min, Pain=0, Yesy=10, Novak=2 11:24:57 Vitals capture stopped. 11:25:17 In the Fem Art (right) the SHEATH, FR6.5 PRELUDE 11CM FR 6.[address] by Gisselle Wan, RESIDENT CARE DIRECTOR TECH2. 11:27:12 Sterile dressing applied to site 11:27:15 No case complications noted. 11:27:18 Cine recording checked. 11:27:24 Implantable Device card placed in patient's chart. 11:27:31 A Left Heart Cath was performed. 11:29:55 Patient moved to [facility] End Study - Contrast Media Used In Study Contrast Total Opened (mL) Total Used (mL) Total Wasted (mL) Omnipaque 150 120 30 End Study - Maximum Contrast Load Max Contrast Load (mL) 524.4 End Study - Radiation Exposure Fluoro Time (minutes) 8.5 End Study - Patient Disposition Complications Transferred To Interventional Outcome No Critical Care Bed successful
[2017-09-15] MEDS: TIROFIBAN INFUSION INJ 250 ML IV SCH (12:00)
--- NOTE | 2017-09-15 12:04 | MB ---
cc: ROMERO BROOKS M.D. DATE OF CONSULTATION 09/15/2017 HISTORY OF PRESENT ILLNESS Bill is a very pleasant 56-year-old gentleman who has no significant past medical history. He has been having intermittent chest pain for the last 3-4 weeks which started after he was unloading a trailer. 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 The chest pain has been intermittent. He presented to the ER yesterday at 18:56. The pain occurs at rest; it is in the left upper chest, lasts approximately 5 minutes at a time. He otherwise denies any fever, chills, cough, GI or bleeding, PND, orthopnea, syncope or dizziness. PAST MEDICAL HISTORY 1. Includes cocaine use, last used 3 days ago. IV drug abuse 20 years ago. 2. History of hypertension. SOCIAL HISTORY He uses cocaine. He smokes. Denies alcohol use. ALLERGIES None. MEDICATIONS IN THE ER 1. Aspirin 325 p.o. 2. Heparin bolus and drip. PHYSICAL EXAMINATION VITAL SIGNS: Blood pressure 121/77, pulse 82, respiratory rate 18, temperature 97.9. GENERAL: He is alert and oriented x3, in no distress. NECK: Supple. No JVD, no bruit. CARDIOVASCULAR: S1, S2. No murmurs, rubs, or gallops. LUNGS: Clear to auscultation bilaterally. ABDOMEN: Soft, non-tender, non-distended with positive bowel sounds. EXTREMITIES: No clubbing, cyanosis or edema. LABORATORY DATA White count 8.8, hemoglobin 14.7, hematocrit 43.6, platelet count 275. Troponin at 19:00 on 09/14 was 1.91, at 1 a.m. on 09/15 was 4.92; at 6:35 a.m. it was 8.38. Sodium 138, potassium 3.6, chloride 106, bicarb 27.1, BUN 13, creatinine 0.74. INR is 4.0. CHEST X-RAY No acute disease. EKG Normal sinus rhythm at 85 beats per minute and is within normal limits. FINAL DIAGNOSIS 1. Non-STEMI. 2. Cocaine abuse. 3. Tobacco abuse. 4. Hypertension. 5. Acute coronary syndrome. 6. [place] [employer] Society Class IV angina. DISCUSSION 1. Consult was called in to me at 07:30 this morning. I called the greens laborer to set up an urgent catheterization due to the patient's elevated troponin and increasing troponin, multiple cardiac risk factors. 2. I strongly recommended the patient stop smoking. 3. Continue aspirin. 4. Further recommendations based on results of his coronary anatomy. MD RADHA Willett/RUPALI /11:36 AM /11:48 AM
--- NOTE | 2017-09-15 15:22 | EKG ---
Date Performed: 09/15/2017 Time Performed: 00:52:13 PTAGE: 56 years EKG: Sinus rhythm BORDERLINE RIGHT AXIS DEVIATION NONSPECIFIC ST & T-WAVE ABNORMALITY BORDERLINE ECG Compared to prior tracing no significant change PREVIOUS TRACING : 09/14/2017 20.14 DOCTOR: Hubert Grimaldo Interpretating Date/Time 09/17/2017 08:18:30
--- NOTE | 2017-09-15 15:22 | EKG ---
Date Performed: 09/14/2017 Time Performed: 20:14:06 PTAGE: 56 years EKG: Sinus rhythm NONSPECIFIC ST & T-WAVE ABNORMALITY BORDERLINE ECG Compared to prior tracing no significant change PREVIOUS TRACING : 09/14/2017 17.52.42 DOCTOR: Hubert Grimaldo Interpretating Date/Time 09/15/2017 15:22:11
--- NOTE | 2017-09-15 15:22 | EKG ---
Date Performed: 09/14/2017 Time Performed: 17:52:42 PTAGE: 56 years EKG: Sinus rhythm NONSPECIFIC ST & T-WAVE ABNORMALITY BORDERLINE ECG INTERPRETATION BASED ON A DEFAULT AGE OF 41 YEARS NO PREVIOUS TRACING DOCTOR: Hubert Grimaldo Interpretating Date/Time 09/15/2017 15:21:24
--- NOTE | 2017-09-15 15:23 | EKG ---
Date Performed: 09/15/2017 Time Performed: 06:59:29 PTAGE: 56 years EKG: Sinus rhythm BORDERLINE RIGHT AXIS DEVIATION NONSPECIFIC T-WAVE ABNORMALITY BORDERLINE ECG Compared to prior trac ing no significant change PREVIOUS TRACING : 09/15/2017 00.52 DOCTOR: Hubert Grimaldo Interpretating Date/Time 09/15/2017 15:22:30
[2017-09-15] MEDS ORDERED: IOHEXOL 350 MG/ML 50 ML BTL (for Cath Lab) OTHER ONE (15:42)
[2017-09-15] MEDS ORDERED: IOHEXOL 350 MG/ML 100 ML BTL (for Cath Lab) OTHER ONE (15:42)
[2017-09-15] MEDS: CARVEDILOL 3.125 MG TAB PO SCH (20:37)
[2017-09-15] MEDS ORDERED: ATORVASTATIN 10 MG TAB PO SCH (21:00)
--- NOTE | 2017-09-15 23:02 | MA ---
cc: ROMERO BROOKS M.D. DATE: 09/15/2017 PROCEDURE: Left heart catheterization, left angiography, coronary angiography, PTCA of the first obtuse marginal vessel, PCI bare metal stent of the mid left circumflex vessel. INDICATIONS: Non STEMI, [place] [employer], class IV angina, coronary artery disease. Tobacco use. DESCRIPTION OF PROCEDURE: The patient was brought to the Cardiac Catheterization Laboratory, prepped and draped in the usual sterile fashion. 10 cc of 1% lidocaine was used to locally anesthetize the right common femoral artery. A 4-Comoran sheath was placed in the right common femoral artery. 4-Comoran JR-4, JL-4 catheters were used to perform left and right coronary angiography. Note: I needed to use a 4 [place] JR4 diagnostic catheter and a 0.035 glide wire to traverse the right common iliac artery. Blood pressure was 120/60 suggesting a tortuous vessel, however, fluoroscopic imaging did suggest significant stenosis in the right common iliac artery. Thereafter, all catheter exchanges were done over 0.035 J-tip guide wire. 4 [place] JR4 and JL4 catheters were used to perform left and right coronary angiography, left ventriculopathy. FINDINGS: LV pressure is 145/6/8, ejection fraction 50%. The right coronary artery is dominant and has an ostial 50% stenosis, has a long 60% to 70% stenosis in the proximal segment. This may be partially due to deep fitting of the 4 [place] JR4 and spasming, because I only saw this in the cranial view. On the initial JAPANESE view there appeared to be only 20 to 30% stenosis. The right PDA and LENY are large vessels with no significant obstructive disease. Left main coronary artery has a distal 30% stenosis. Left circumflex vessel is a long ostial 50% stenosis and has approximately 45 degree angulation off the LAD. There is a 95% focal hazy stenosis in the mid AV groove left circ. The first obtuse marginal vessel at this lesion site has an ostial 95% stenosis. This is a small to medium size vessel. The left circumflex vessel distal to the lesion goes on to feed a small to medium size marginal vessel and two small distal posterolateral arteries. The LAD has a 50 to 60% stenosis in the proximal segment which is a long lesion spanning medium size diagonal artery. The medium size diagonal artery has an ostial 75% stenosis and the diagonal has an approximately 45 degree angulation off the LAD. There is a distal 50% stenosis in the LAD. The 4 Comoran sheath exchanged for the 6 Comoran sheath, 16 units per kilo of heparin was given. ACT was 239. A 6 Comoran XB 4.0 Prowater guide wire was placed into the distal obtuse marginal vessel. A second 0.014 Prowater guidewire was placed into the first obtuse marginal vessel at the lesion site bifurcation area as detailed above. A 2-5 10 compliant Euphora balloon was used to predilate the first obtuse marginal obtuse marginal vessel, two inflations of 8-10 atmospheres for 20 seconds. Stenosis went from 95% to 0% with NICK-III flow. I then directly stented the AV groove left circumflex vessel with a 3-0 9 Integrity stent, one inflation to 10 atmospheres for 20 seconds. NOTE: Crossing the lesion did reproduce the patient's symptoms and then it got worse with balloon inflation. There was temporarily NICK II to III flow into the distal left circ and OM which was completely resolved after 200 mcg of intracoronary Nipride. The patient's chest pain was completely relieved at the end of the procedure. CONCLUSION Non STEMI, acute coronary syndrome, [place] Cardi[employer] Society class IV angina, culprit 95% hazy stenosis in the mid AV groove, left circumflex vessel with a bifurcation with villa size first obtuse marginal vessel as detailed above. Otherwise mild left main and moderate to severe three-vessel coronary artery disease in the right dominant system as detailed above. Successful PTCA of the ostial first obtuse marginal vessel from 95% to 0% with NICK-III flow. Successful PCI with bare metal stent of the mid AV groove left circumflex vessel from 95% to 0% with NICK-III flow. Recommend aspirin 162 milligrams daily indefinitely. Effient 60% p.o. load and then 10 milligrams daily for 12 to 15 months. Aggrastat drip per protocol. I have strongly recommended to the patient to stop smoking. Will check fasting lipids, NCP guidelines. MD RADHA Willett/ETHAN /11:29 AM /10:08 PM
[2017-09-16] VITALS (11 sets, daily range): BP systolic 135–138; BP diastolic 63–78; PULSE 68–92; RESP 14–16; TEMP 97.9–98; O2SAT 97
[2017-09-16] MEDS: TIROFIBAN INFUSION INJ 250 ML IV SCH (02:14)
[2017-09-16 07:20] LABS: POTASSIUM 3.8 MEQ/L (3.5-5.1)
[2017-09-16 07:22] LABS: AUTOMATED NEUTROPHIL # 3.8 TH/MM3 (1.8-7.7); BASOPHIL % 0.7 % (0.0-2.0); EOSINOPHIL # 0.1 TH/MM3 (0-0.4); EOSINOPHIL % 2.3 % (0.0-4.0); HEMO FLAGS DIFF FINAL; LYMPHOCYTE # 1.6 TH/MM3 (1.0-4.8); MEAN CELL VOLUME 89.6 FL (80.0-100.0); MEAN CORPUSCULAR HEMOGLOBIN 31.6 PG (27.0-34.0); MEAN CORPUSCULAR HGB CONC 35.2 % (32.0-36.0); MONO % 9.6 % (0.0-8.0); NEUT % 61.4 % (16.0-70.0); PLATELET COUNT 265 TH/MM3 (150-450); RED BLOOD COUNT 4.79 MIL/MM3 (4.50-5.90); RED CELL DISTRIBUTION WIDTH 13.5 % (11.6-17.2); WHITE BLOOD COUNT 6.2 TH/MM3 (4.0-11.0)
[2017-09-16 07:27] LABS: HDL CHOLESTEROL 41.9 MG/DL (40.0-60.0); INDIRECT BILIRUBIN 0.6 MG/DL (0.0-0.8); TOTAL BILIRUBIN ADULT 0.7 MG/DL (0.2-1.0)
[2017-09-16] MEDS: CARVEDILOL 3.125 MG TAB PO SCH (08:34)
--- NOTE | 2017-09-16 08:56 | HHI.PR ---
Subjective Remarks Pt denies any CP/SOB/N/V concerned about getting his meds. Discussed w RN, pt has been cleared by cards. Objective Vitals Vital Signs Date Time Temp Pulse Resp B/P (MAP) Pulse Ox O2 Delivery O2 Flow Rate FiO2 09/16/17 08:00 79 09/16/17 07:00 98.0 79 16 135/63 (87) 97 09/16/17 07:00 72 09/16/17 06:00 76 09/16/17 05:00 68 09/16/17 04:00 70 09/16/17 03:15 97.9 80 14 138/78 (98) 97 09/16/17 03:00 78 09/16/17 02:00 68 09/16/17 01:00 70 09/16/17 00:00 78 09/15/17 23:00 82 09/15/17 23:00 97.8 81 16 138/73 (94) 98 09/15/17 22:00 78 09/15/17 21:00 82 09/15/17 20:00 80 09/15/17 19:15 97.8 77 14 146/87 (106) 98 09/15/17 19:00 78 09/15/17 18:00 74 09/15/17 17:00 77 09/15/17 16:00 79 09/15/17 15:00 83 09/15/17 15:00 98.0 88 16 105/72 (83) 09/15/17 14:55 88 09/15/17 13:00 66 09/15/17 12:00 75 09/15/17 11:15 88 171/95 09/15/17 10:00 82 09/15/17 09:06 97.9 82 18 121/77 (92) 97 09/15/17 09:00 78 I/O 09/15/17 09/15/17 09/15/17 09/16/17 09/16/17 09/16/17 07:00 15:00 23:00 07:00 15:00 23:00 Intake Total 74.0 ml 635.5 ml 628 ml Output Total 850 ml 780 ml Balance 74.0 ml -214.5 ml -152 ml Intake Oral 480 ml 480 ml IV Total 74.0 ml 155.5 ml 148 ml Output Urine Total 850 ml 780 ml # Voids 0 Result Diagram: 09/16/17 0431 09/16/17 0431 Imaging Last Impressions Chest X-Ray 09/14/17 3738 Signed Impressions: Service Date/Time: Thursday, September 14, 2017 18:57 - CONCLUSION: No acute disease. Anjel Thomas MD Objective Remarks GENERAL: This is a well-nourished, well-developed patient, in no apparent distress. EYES Extraocular motions intact. ENT: Nose without drainage. Airway patent. NECK: Trachea midline. CARDIOVASCULAR: Regular rate and rhythm without murmurs RESPIRATORY: Clear to auscultation. Breath sounds equal bilaterally. No wheezes GASTROINTESTINAL: Abdomen soft, non-tender, nondistended. No guarding. MUSCULOSKELETAL: Extremities without edema. NEUROLOGICAL: Awake and alert. Cranial nerves II through XII intact. Motor and sensory grossly within normal limits. Normal speech. A/P Problem List: (1) Non-ST elevation [place] (NSTEMI) ICD Code: I21.4 - Non-ST elevation (NSTEMI) myocardial infarction Status: Acute (2) Cocaine abuse ICD Code: F14.10 - Cocaine abuse, uncomplicated (3) Tobacco abuse ICD Code: Z72.0 - Tobacco use (4) Hypertension ICD Code: I10 - Essential (primary) hypertension Status: Chronic Assessment and Plan (1) Non-ST elevation [place] (NSTEMI) Patient received Aspirin and started on Heparin drip per protocol. Nitro paste Cardiology evaluated the patient and pt is s/p cardiac cath. s/p Successful PTCA of the ostial first obtuse marginal vessel f Successful PCI with bare metal stent of the mid AV groove left circumflex vessel Per cards recs, pt to be discharged on ASA 162mg po daily and effient 10mg po daily. He will also need ramipril, coreg and lipitor upon discharge. CM consulted for d /c planning. (2) Cocaine abuse Patient admitted to using once 3 days prior to admission, Prior to that he reports no illicit drug use in the past 20 years. Patient was counseled to quit completely. (3) Tobacco abuse Patient counseled to quit. (4) Hypertension BP currently stable. Monitor Discharge Planning discharge home today f/u w Dr. Grimaldo, cardiology, tomorrow in his office. scripts in chart. heart healthy diet activity ad ziggy. condition: stable. Problem Qualifiers (1) Hypertension: Qualified Codes: I10 - Essential (primary) hypertension Parul Argueta MD Sep 16, 2017 08:56
[2017-09-16] MEDS ORDERED: RAMIPRIL 2.5 MG CAP PO SCH (09:00)
[2017-09-16] MEDS: SODIUM CHLORIDE 0.9% FLUSH 10 ML FLUSH IV FLUSH SCH (09:00)
[2017-09-16] MEDS ORDERED: PRASUGREL 10 MG TAB PO SCH (09:00)
[2017-09-16] MEDS ORDERED: ASPIRIN 81 MG CHEW TAB PO SCH (09:00)
[2017-09-16] MEDS ORDERED: PRAS10TA PO (09:13)
[2017-09-16] MEDS ORDERED: CARV3.125 PO (09:13)
[2017-09-16] MEDS ORDERED: LIPI10TA PO (09:13)
[2017-09-16] MEDS ORDERED: ASPI81CH25 PO (09:13)
[2017-09-16] MEDS ORDERED: RAMI2.5C PO (09:13)
--- NOTE | 2017-09-16 21:13 | EKG ---
Date Performed: 09/16/2017 Time Performed: 05:25:48 PTAGE: 56 years EKG: Sinus rhythm Rightward axis Borderline ECG Compared to prior tracing no significant change DOCTOR: Mitesh Luciano Interpretating Date/Time 09/16/2017 21:12:21
== END 2017-09-16 11:34 | disposition home or self-care (01) | DRG 249 ==
LOC: PHED 17:17 → PHEDA 20:25 → PHEDH 09-15 00:25 → HCPC 09-15 08:49
PROVIDERS: ADMIT Hospitalist; ATTEND Hospitalist
PROC: 02703DZ Dilation of Coronary Artery, One Artery with Intraluminal Device, Percutaneous Approach (ICD-10-PCS; principal; 2017-09-15)
PROC: 02703ZZ Dilation of Coronary Artery, One Artery, Percutaneous Approach (ICD-10-PCS; 2017-09-15)
PROC: 4A023N7 Measurement of Cardiac Sampling and Pressure, Left Heart, Percutaneous Approach (ICD-10-PCS; 2017-09-15)
PROC: B2111ZZ Fluoroscopy of Multiple Coronary Arteries using Low Osmolar Contrast (ICD-10-PCS; 2017-09-15)
DX: I21.4 Non-ST elevation (NSTEMI) myocardial infarction (principal); I10 Essential (primary) hypertension; F17.210 Nicotine dependence, cigarettes, uncomplicated; F14.10 Cocaine abuse, uncomplicated; I25.119 Atherosclerotic heart disease of native coronary artery with unspecified angina pectoris
CPT/HCPCS: 71010; 80048; 80061; 80076; 82550; 82552; 84484; 85002; 85025; 85027; 85610; 85730; 92928; 93005; 93458; C1725; C1769; C1876; C1887; C1893; J1644; J2250; J3246; Q9967